=== PATIENT | female | born 1945 | race Caucasian/White ===

== ENCOUNTER 2018-10-14 12:53 | Day surgery (SDC) | payer MEDICARE, OTHER ==
[2018-10-14] MEDS ORDERED: DEXTROSE 50% 50 ML SYRINGE (14:51)
[2018-10-14] MEDS ORDERED: PROPOFOL 40 ML (14:51)
[2018-10-14] MEDS ORDERED: hydrALAzine 20 MG INJ (15:00)
[2018-10-14] MEDS ORDERED: LABETALOL HCL 20MG INJ (15:00)
[2018-10-14 16:58] LABS: TROPONIN-I < 0.012 ng/ml (0.000-0.120)
== END 2018-10-14 16:14 | disposition home or self-care (01) ==
LOC: GIL 12:53
DX: R19.4 Change in bowel habit (principal); L64.9 Androgenic alopecia, unspecified; K57.30 Diverticulosis of large intestine without perforation or abscess without bleeding; K44.9 Diaphragmatic hernia without obstruction or gangrene; K20.8 Other esophagitis; E11.9 Type 2 diabetes mellitus without complications; I12.9 Hypertensive chronic kidney disease with stage 1 through stage 4 chronic kidney disease, or unspecified chronic kidney disease; N18.9 Chronic kidney disease, unspecified; I73.9 Peripheral vascular disease, unspecified
CPT/HCPCS: 43239; 82962; 84484; 88305; 88312; 93005